=== PATIENT | male | born 1950 | race Hispanic/Latino ===

== ENCOUNTER 2023-12-27 05:33 | Day surgery (SDC) | payer OTHER ==
[2023-12-23 12:18] LABS: BASOPHILS # (AUTO) 0.03 K/uL (0.00-0.20); BASOPHILS % (AUTO) 0.5 % (0.0-5.0); EOSINOPHILS # (AUTO) 0.01 K/uL (0.00-0.70); EOSINOPHILS % (AUTO) 0.2 % (0.0-8.0); IMMATURE GRANULOCYTE ABSOLUTE 0.06 K/uL (0-1); LYMPHOCYTES # (AUTO) 1.4 K/uL (1.0-4.8); LYMPHOCYTES % (AUTO) 20.7 % (21.0-51.0); MEAN CORPUSCULAR HEMOGLOBIN 32.4 pg (27.0-33.0); MEAN CORPUSCULAR HGB CONC 33.5 g/dL (32.0-36.0); MEAN CORPUSCULAR VOLUME 96.6 fL (79-99); MONOCYTES % (AUTO) 14.9 % (3.0-13.0); NEUTROPHILS # (AUTO) 4.1 K/uL (1.8-7.7); NEUTROPHILS % (AUTO) 62.8 % (40.0-77.0); PLATELET COUNT (AUTO) 169 K/uL (130-400); RED BLOOD CELL COUNT(AUTO) 4.14 MIL/uL (4.50-6.20); RED CELL DISTRIBUTION WIDTH 13.7 % (11.0-15.5); WHITE BLOOD COUNT (AUTO) 6.5 K/uL (4.8-10.8)
[2023-12-23 12:30] LABS: INR 0.94 (0.85-1.15); PROTHROMBIN TIME 11.1 SEC (9.6-11.6)
[2023-12-23 12:34] LABS: ALBUMIN 3.8 g/dL (3.5-5.0); BILIRUBIN,TOTAL 0.7 mg/dL (0.2-1.0); POTASSIUM 4.4 mmol/L (3.5-5.1); TOTAL PROTEIN, SERUM 7.7 g/dL (6.0-8.3)
[2023-12-23 14:22] VITALS: BP 159/76; PULSE 68; RESP 18
[~2023-12-27] VITALS: Ht 180.3 cm; Wt 83.1 kg
[2023-12-27] VITALS (16 sets, daily range): BP systolic 136–157; BP diastolic 63–80; PULSE 59–73; RESP 15–19
[~2023-12-27 05:33] MED LIST: ATOR20TA65 PO; CARV6.25 PO; HYDR-4064 PO; OLME20TA68 PO
[2023-12-27] MEDS ORDERED: CEFAZOLIN SODIUM 2 GM VIAL ONE (06:23)
[2023-12-27] MEDS ORDERED: METRONIDAZOLE 500MG/100ML BAG 200 ML ONE (06:23)
[2023-12-27] MEDS ORDERED: LACTATED RINGERS 1000ML 1,000 ML IV ONE (06:23)
[2023-12-27] MEDS ORDERED: HYDROMORPHONE 1 MG INJ ONE (06:56)
[2023-12-27] MEDS ORDERED: FAMOTIDINE 20MG VIAL IV ONE (06:56)
[2023-12-27] MEDS ORDERED: PHENYLEPHRINE HCL 10 MG/ML 1ML VIAL IV ONE (07:09)
[2023-12-27] MEDS ORDERED: NEOSTIGMINE METHYLSULFATE 1MG/ML IV ONE (07:11)
[2023-12-27] MEDS ORDERED: GLYCOPYRROLATE 0.2 MG/ML 5 ML VIAL ONE (07:11)
[2023-12-27] MEDS ORDERED: PROPOFOL 10 MG/ML 20ML VIAL IV ONE (07:11)
[2023-12-27] MEDS ORDERED: LIDOCAINE PF 100MG/5ML (2%) SYRINGE 5ML ONE (07:11)
[2023-12-27] MEDS ORDERED: ROCURONIUM BROMIDE 10MG/1ML 5ML VL ONE (07:11)
[2023-12-27] MEDS ORDERED: FENTANYL CITRATE PF 50 MCG/1 ML 2ML VIAL ONE (07:12)
[2023-12-27] MEDS ORDERED: ONDANSETRON 4MG INJ ONE (07:49)
[2023-12-27] MEDS ORDERED: BUPIVACAINE/PF 0.25% 30ML VIAL IJ ONE (07:58)
[2023-12-27] MEDS ORDERED: EPHEDRINE SULFATE 50 MG/ML AMPULE ONE (08:15)
[2023-12-27] MEDS: CEFAZOLIN SODIUM 2 GM VIAL IVPB ONE (08:20)
[2023-12-27] MEDS: IOHEXOL-350 50ML VIAL IV ONE (08:33)
[2023-12-27] MEDS ORDERED: IOHEXOL-350 50ML VIAL IV ONE (09:41)
[2023-12-27] MEDS: MEPERIDINE-PF 25 MG/ML SYG ONE (09:47)
== END 2023-12-27 10:55 | disposition home or self-care (01) ==
LOC: DAH 05:33
PROVIDERS: ATTEND Surgery
DX: K80.10 Calculus of gallbladder with chronic cholecystitis without obstruction (principal); K82.8 Other specified diseases of gallbladder; K76.0 Fatty (change of) liver, not elsewhere classified; K73.9 Chronic hepatitis, unspecified; K44.9 Diaphragmatic hernia without obstruction or gangrene; I10 Essential (primary) hypertension; E78.5 Hyperlipidemia, unspecified; I49.1 Atrial premature depolarization; Z79.01 Long term (current) use of anticoagulants; Z90.49 Acquired absence of other specified parts of digestive tract; Z98.890 Other specified postprocedural states; Z86.19 Personal history of other infectious and parasitic diseases
CPT/HCPCS: 80053; 85025; 85610; 85730; 86850 ×2; 86900 ×2; 86901 ×2; 36415 ×2; 93005 ×2; 47379; 47563; 88313; 88304; 88307; 74300; A6260; A4663; J7030; A4215 ×2; C1758; J7120; J3490 ×5; J3010; J1170; J0665; J2001; J2704; J2405; J2710; J2175; J2371; Q9967 ×2; J0690 ×2; C1769 ×3; A4649 ×2; C1760; A4657; A4213; A4222; A4216; A4223 ×2; A4221; 48400; G0168